=== PATIENT | male | born 1975 | race Caucasian/White ===

== ENCOUNTER 2018-04-15 19:20 | Emergency (ER) | payer OTHER ==
[~2018-04-15] VITALS: Ht 439.4 cm; Wt 113.4 kg
[~2018-04-15 19:20] MED LIST: ASPIR 8181 MG PO; ATI1 PO; BUS5 PO; CARVEDILOL3.125 M1 PO; COLACE100 MG PO; COR20 PO; COR6 PO; ENALAPRIL MALEA10 MG PO; FERL PO; FUROSEMIDE20 MG PO; GABAPENTIN100 M2 PO; HUMI SQ; LAC PO; LASIX40 MG PO; LEV250 PO; LEV500 PO; LEVEMIR100 U/M1 SQ; MAC100 PO; NEURONTIN100 MG PO; NORCO1 TA1 PO; PAXIL CR25 MG PO; SERO100 PO; SIMVASTATIN20 M1 PO; SPIRONOLACTONE50 MG PO; VITC PO
[2018-04-15 19:22] VITALS: Ht 439.4 cm; Wt 113.4 kg
[2018-04-15 19:45] LABS: BASOPHIL % 0.3 % (0-2); PLATELET COUNT 101 x10^3mcL (130-400); RED CELL DISTRIBUTION WIDTH 19.8 % (11.5-14.5)
[2018-04-15 19:56] LABS: CALCIUM 8.4 mg/dL (8.5-10.1); CARBON DIOXIDE 21.7 mmol/L (21-32); CHLORIDE SERUM 105 mmol/L (98-107); CREATININE SERUM 0.9 mg/dL (0.7-1.3); GFR1 > 60 mL/min; GLUCOSE SERUM 119 mg/dL (74-106); POTASSIUM SERUM 3.7 mmol/L (3.5-5.1); SODIUM SERUM 143 mmol/L (136-145)
[2018-04-15 20:00] LABS: ALBUMIN 4.1 g/dL (3.4-5.0); ALKALINE PHOSPHATASE 87 U/L (46-116); ALT/SGPT 48 U/L (16-63); AST/SGOT 74 U/L (15-37); BILIRUBIN TOTAL 0.78 mg/dL (0.20-1.00)
[2018-04-15 20:01] LABS: TOTAL PROTEIN, SERUM 8.7 g/dL (6.4-8.2)
[2018-04-15 20:11] VITALS: BP 134/79
== END 2018-04-15 20:11 | disposition left against medical advice (07) ==
LOC: ED 19:20
PROVIDERS: Emergency Medicine
DX: F10.10 Alcohol abuse, uncomplicated (principal); E11.9 Type 2 diabetes mellitus without complications; I11.9 Hypertensive heart disease without heart failure; I50.9 Heart failure, unspecified
CPT/HCPCS: 36415; G0480

== ENCOUNTER 2018-11-05 12:47 | Emergency (ER) | payer OTHER ==
[~2018-11-05] VITALS: Ht 182.9 cm; Wt 113.4 kg
[2018-11-05 12:54] VITALS: Ht 182.9 cm; Wt 113.4 kg
[2018-11-05 13:20] LABS: BASOPHIL % 0.4 % (0-2)
[2018-11-05 13:22] LABS: PLATELET COUNT 25 x10^3mcL (130-400); RED CELL DISTRIBUTION WIDTH 15.5 % (11.5-14.5)
[2018-11-05 13:32] LABS: CALCIUM 8.2 mg/dL (8.5-10.1); CARBON DIOXIDE 29.7 mmol/L (21-32); CHLORIDE SERUM 99 mmol/L (98-107); GFR1 > 60 mL/min; GLUCOSE SERUM 152 mg/dL (74-106); POTASSIUM SERUM 3.4 mmol/L (3.5-5.1); SODIUM SERUM 141 mmol/L (136-145)
[2018-11-05 13:39] LABS: ALBUMIN 3.9 g/dL (3.4-5.0); ALKALINE PHOSPHATASE 92 U/L (46-116); ALT/SGPT 116 U/L (16-63); AST/SGOT 271 U/L (15-37); BILIRUBIN TOTAL 1.5 mg/dL (0.20-1.00); TOTAL PROTEIN, SERUM 7.8 g/dL (6.4-8.2)
[2018-11-05 15:08] LABS: AMPHETAMINE QUAL UR NONE DETECTED (See below)
[2018-11-05 16:12] VITALS: BP 112/80
== END 2018-11-05 16:12 | disposition home or self-care (01) ==
LOC: ED 12:47
PROVIDERS: Emergency Medicine
DX: K85.20 Alcohol induced acute pancreatitis without necrosis or infection (principal); I11.9 Hypertensive heart disease without heart failure; I50.9 Heart failure, unspecified; E11.9 Type 2 diabetes mellitus without complications; R04.0 Epistaxis; Z98.890 Other specified postprocedural states
CPT/HCPCS: G0480; J2405; J3490; J7030; Q0092